=== PATIENT | female | born 1975 | race Caucasian/White ===

== ENCOUNTER 2018-08-07 17:57 | Emergency (ER) | payer OTHER ==
[~2018-08-07] VITALS: Ht 160 cm; Wt 64.0 kg
[~2018-08-07 17:57] MED LIST: ADVIL200 M1 PO; FIORICET TABLET1 TAB PO
== END 2018-08-07 21:20 | disposition home or self-care (01) ==
LOC: ER 17:57
DX: S13.4XXA Sprain of ligaments of cervical spine, initial encounter (principal); S20.212A Contusion of left front wall of thorax, initial encounter; S20.211A Contusion of right front wall of thorax, initial encounter; V49.9XXA Car occupant (driver) (passenger) injured in unspecified traffic accident, initial encounter; Y93.89 Activity, other specified; Y92.488 Other paved roadways as the place of occurrence of the external cause; Y99.8 Other external cause status

== ENCOUNTER 2020-09-08 08:00 | Outpatient (CLI) | payer OTHER | END 2020-09-08 08:30 | disposition home or self-care (01) | LOC: PPH VACUNA 08:00 | DX: Z23 Encounter for immunization (principal) ==